=== PATIENT | female | born 1990 | race Caucasian/White ===

== ENCOUNTER 2016-09-11 21:27 | Emergency (ER) | payer BC ==
[2016-09-11 21:36] VITALS: BP 129/85
== END 2016-09-11 23:29 | disposition home or self-care (01) ==
LOC: ED 21:27
DX: F43.9 Reaction to severe stress, unspecified (principal); G43.909 Migraine, unspecified, not intractable, without status migrainosus
CPT/HCPCS: J1885; Q0162

== ENCOUNTER 2019-03-07 16:02 | Emergency (ER) | payer BC ==
[~2019-03-07] VITALS: Ht 160 cm; Wt 81.6 kg
[2019-03-07 16:12] VITALS: Ht 160 cm; Wt 81.6 kg
[2019-03-07 17:02] LABS: BASOPHIL % 0.2 % (0-2); PLATELET COUNT 319 x10^3mcL (130-400); RED CELL DISTRIBUTION WIDTH 13.1 % (11.5-14.5)
[2019-03-07 17:21] LABS: CALCIUM 9.2 mg/dL (8.5-10.1); CARBON DIOXIDE 28.3 mmol/L (21-32); CHLORIDE SERUM 100 mmol/L (98-107); CREATININE SERUM 0.6 mg/dL (0.6-1.0); GFR1 > 60 mL/min; GLUCOSE SERUM 96 mg/dL (74-106); POTASSIUM SERUM 3.4 mmol/L (3.5-5.1); SODIUM SERUM 138 mmol/L (136-145)
[2019-03-07 17:28] LABS: ALBUMIN 4.4 g/dL (3.4-5.0); ALKALINE PHOSPHATASE 79 U/L (46-116); ALT/SGPT 43 U/L (14-59); AST/SGOT 19 U/L (15-37); BILIRUBIN TOTAL 0.34 mg/dL (0.20-1.00); TOTAL PROTEIN, SERUM 8.2 g/dL (6.4-8.2)
[2019-03-07 17:51] LABS: UA SPECIFIC GRAVITY 1.025 (1.005-1.035); microscopic required? YES; urine erythrocyte 1+ (NEGATIVE)
[2019-03-07 18:35] VITALS: BP 110/62
== END 2019-03-07 18:35 | disposition home or self-care (01) ==
LOC: ED 16:02
PROVIDERS: Emergency Medicine
DX: G43.909 Migraine, unspecified, not intractable, without status migrainosus (principal); R06.4 Hyperventilation; R42 Dizziness and giddiness
CPT/HCPCS: J1885; J2765; J7030